=== PATIENT | female | born 1965 | race Hispanic/Latino ===

== ENCOUNTER 2021-05-08 23:41 | Emergency (ER) | payer MEDICARE ==
[~2021-05-08] VITALS: Ht 157.5 cm; Wt 77.1 kg
[2021-05-09 00:12] VITALS: BP 126/59
[2021-05-09] MEDS ORDERED: ONDANSETRON 4MG INJ IVP ONE ×2 (00:30)
[2021-05-09 00:32] LABS: CREATININE 0.8 mg/dL (0.5-1.5); POTASSIUM 3.5 mmol/L (3.5-5.1)
[2021-05-09 00:36] LABS: ALBUMIN 4.1 g/dL (3.5-5.0); BILIRUBIN,TOTAL 0.4 mg/dL (0.2-1.0); TOTAL PROTEIN, SERUM 7.8 g/dL (6.0-8.3)
[2021-05-09 00:50] LABS: HEMATOCRIT 39.2 % (36-48); MEAN CORPUSCULAR HEMOGLOBIN 30.2 pg (27.0-33.0); MEAN CORPUSCULAR HGB CONC 33.2 g/dL (32.0-36.0); RED BLOOD CELL COUNT(AUTO) 4.31 MIL/uL (4.00-5.50); RED CELL DISTRIBUTION WIDTH 13.2 % (11.0-15.5); WHITE BLOOD COUNT (AUTO) 5.1 K/uL (4.8-10.8)
[2021-05-09] MEDS ORDERED: PROCHLORPERAZINE EDISYLATE 5 MG/ML 2 ML VIAL IVP ONE (02:00)
[2021-05-09 02:56] VITALS: BP 123/54
[2021-05-09] MEDS ORDERED: PHEN12S PR (02:57)
[2021-05-09] MEDS ORDERED: ONDA4TAB10 PO (02:57)
== END 2021-05-09 03:07 | disposition home or self-care (01) ==
LOC: EDH 23:41
DX: K29.00 Acute gastritis without bleeding (principal); R11.2 Nausea with vomiting, unspecified; I10 Essential (primary) hypertension; F32.9 Major depressive disorder, single episode, unspecified; F41.9 Anxiety disorder, unspecified; M06.9 Rheumatoid arthritis, unspecified; Z88.6 Allergy status to analgesic agent; Z20.822 Contact with and (suspected) exposure to COVID-19
CPT/HCPCS: 36415; 71045; 80053; 83690; 84484; 85027; 87635; 87804 ×2; 93005; 96374; 96375; 99285; C9803; J2405

== ENCOUNTER → 2021-08-26 | Outpatient (CLI) | payer MEDICARE, OTHER ==
[~2021-08-26] MED LIST: ONDA4TAB10 PO; PHEN12S PR
== END | disposition home or self-care (01) ==
LOC: RAH 14:34
PROVIDERS: ATTEND Family Medicine
DX: M85.88 Other specified disorders of bone density and structure, other site (principal); M25.561 Pain in right knee
CPT/HCPCS: 73562

== ENCOUNTER → 2023-02-17 | Outpatient (CLI) | payer MEDICARE, MEDICAID | END | disposition home or self-care (01) | LOC: RAH 14:11 | PROVIDERS: ATTEND Family Medicine | DX: I08.8 Other rheumatic multiple valve diseases (principal); R01.1 Cardiac murmur, unspecified | CPT/HCPCS: 93306 ==

== ENCOUNTER → 2023-06-29 | Outpatient (CLI) | payer MEDICARE | END | disposition home or self-care (01) | LOC: RAH 08:29 | PROVIDERS: ATTEND Pediatrics | DX: K91.1 Postgastric surgery syndromes (principal); K21.9 Gastro-esophageal reflux disease without esophagitis; Z98.84 Bariatric surgery status | CPT/HCPCS: 74240 ==

== ENCOUNTER 2023-08-26 06:46 | Day surgery (SDC) | payer MEDICARE ==
[~2023-08-26] VITALS: Ht 157.5 cm; Wt 82.6 kg
[2023-08-26] VITALS (8 sets, daily range): BP systolic 101–122; BP diastolic 47–64; PULSE 45–51; RESP 14–16
[~2023-08-26 06:46] MED LIST changes: +BUSP10TA3 PO; +DOCU100C33 PO; +FAMO20TA8 PO; +LAMO150T6 PO; +LEVO150C4 PO; +OMEP40CA21 PO; -ONDA4TAB10 PO; -PHEN12S PR; +PREG150C47 PO; +SERT-440 PO; +SUVO20TA PO; +VITAFUSION PO
[2023-08-26] MEDS ORDERED: LIDOCAINE PF 100MG/5ML (2%) SYRINGE 5ML ONE (07:46)
[2023-08-26] MEDS ORDERED: PROPOFOL 10 MG/ML 20ML VIAL IV ONE (07:46)
[2023-08-26] MEDS ORDERED: 0.9%NACL 1000ML 1,000 ML IV ONE (09:41)
== END 2023-08-26 09:45 | disposition home or self-care (01) ==
LOC: ENDO 06:46 → DAH 06:46 → ENDO 09:45
PROVIDERS: ATTEND Surgery
DX: R13.10 Dysphagia, unspecified (principal); K91.1 Postgastric surgery syndromes; K29.50 Unspecified chronic gastritis without bleeding; R10.13 Epigastric pain; K21.9 Gastro-esophageal reflux disease without esophagitis; F41.9 Anxiety disorder, unspecified; F32.A Depression, unspecified; G47.00 Insomnia, unspecified; E03.9 Hypothyroidism, unspecified; M19.90 Unspecified osteoarthritis, unspecified site; E56.9 Vitamin deficiency, unspecified; Z98.890 Other specified postprocedural states; Z90.49 Acquired absence of other specified parts of digestive tract; Z98.891 History of uterine scar from previous surgery; Z98.84 Bariatric surgery status
CPT/HCPCS: 81025; 43239; J7030 ×2; J2001; J2704; A4620; A4215 ×2; A4223; A7002; A4222; A4221; A4663; A4216; A4606; J3490

== ENCOUNTER → 2023-09-06 | Outpatient (CLI) | payer MEDICARE | END | disposition home or self-care (01) | LOC: RAH 15:52 | PROVIDERS: ATTEND Physical Medicine & Rehabilitation | DX: M47.22 Other spondylosis with radiculopathy, cervical region (principal); M48.02 Spinal stenosis, cervical region; Z88.8 Allergy status to other drugs, medicaments and biological substances | CPT/HCPCS: 72050 ==

== ENCOUNTER → 2023-10-07 | Outpatient (CLI) | payer MEDICARE | END | disposition home or self-care (01) | LOC: RAH 10:03 | PROVIDERS: ATTEND Physical Medicine & Rehabilitation | DX: M48.02 Spinal stenosis, cervical region (principal); M50.322 Other cervical disc degeneration at C5-C6 level | CPT/HCPCS: 72141 ==

== ENCOUNTER 2024-01-27 05:40 | Day surgery (SDC) | payer MEDICARE ==
[2024-01-27] VITALS (13 sets, daily range): BP systolic 103–132; BP diastolic 49–79; PULSE 50–71; RESP 15–26
[~2024-01-27] VITALS: Ht 160 cm; Wt 87.1 kg
[~2024-01-27 05:40] MED LIST changes: -BUSP10TA3 PO; -DOCU100C33 PO; -LAMO150T6 PO; -SERT-440 PO; -SUVO20TA PO; +TOPI25TA48 PO; -VITAFUSION PO; +[UNRECOGNIZED DRUG - OTHER] PO
[2024-01-27] MEDS: 0.9%NACL 1000ML 1,000 ML IV ONE (07:03)
[2024-01-27] MEDS ORDERED: KETAMINE 50MG/ML SYRINGE 50 MG/ML DISP.SYRIN ONE (07:22)
[2024-01-27] MEDS ORDERED: PROPOFOL 10 MG/ML 20ML VIAL IV ONE (07:22)
[2024-01-27] MEDS ORDERED: MIDAZOLAM HCL 1 MG/ML 2ML VIAL ONE (07:22)
[2024-01-27] MEDS ORDERED: LIDOCAINE PF 100MG/5ML (2%) SYRINGE 5ML ONE (07:22)
[2024-01-27] MEDS ORDERED: GLYCOPYRROLATE 0.2 MG/ML 5 ML VIAL ONE (07:27)
== END 2024-01-27 09:40 | disposition home or self-care (01) ==
LOC: ENDO 05:40 → DAH 05:40 → ENDO 09:40
PROVIDERS: ATTEND Surgery
DX: K91.1 Postgastric surgery syndromes (principal); K30 Functional dyspepsia; K22.89 Other specified disease of esophagus; K31.89 Other diseases of stomach and duodenum; F41.9 Anxiety disorder, unspecified; F32.A Depression, unspecified; E03.9 Hypothyroidism, unspecified; K21.00 Gastro-esophageal reflux disease with esophagitis, without bleeding; M19.90 Unspecified osteoarthritis, unspecified site; E66.01 Morbid (severe) obesity due to excess calories; Z68.24 Body mass index [BMI] 24.0-24.9, adult; Z88.6 Allergy status to analgesic agent; Z82.49 Family history of ischemic heart disease and other diseases of the circulatory system; Z83.3 Family history of diabetes mellitus; Z82.5 Family history of asthma and other chronic lower respiratory diseases; Z80.9 Family history of malignant neoplasm, unspecified; Z79.890 Hormone replacement therapy; Z79.899 Other long term (current) drug therapy; Z98.84 Bariatric surgery status; Z98.891 History of uterine scar from previous surgery; Z98.890 Other specified postprocedural states
CPT/HCPCS: 43270; J7030 ×2; J2001; J2250; J2704; J3490 ×2; A4620; A4215 ×2; A4223; A7002; A4222; A4221; A4663; A4606

== ENCOUNTER 2024-03-16 05:43 | Day surgery (SDC) | payer MEDICARE ==
[2024-03-16] VITALS (10 sets, daily range): BP systolic 103–144; BP diastolic 59–81; PULSE 51–62; RESP 16
[~2024-03-16] VITALS: Ht 160 cm; Wt 86.2 kg
[2024-03-16] MEDS: 0.9%NACL 1000ML 1,000 ML IV ONE (06:43)
[2024-03-16] MEDS ORDERED: PROPOFOL 10 MG/ML 20ML VIAL IV ONE (07:23)
[2024-03-16] MEDS ORDERED: LIDOCAINE PF 100MG/5ML (2%) SYRINGE 5ML ONE (07:24)
== END 2024-03-16 09:40 | disposition home or self-care (01) ==
LOC: DAH 05:43 → ENDO 05:43 → EDSTATUS 11:00
PROVIDERS: ATTEND Surgery
DX: R13.10 Dysphagia, unspecified (principal); K22.89 Other specified disease of esophagus; K31.89 Other diseases of stomach and duodenum; K21.00 Gastro-esophageal reflux disease with esophagitis, without bleeding; K91.1 Postgastric surgery syndromes; F41.9 Anxiety disorder, unspecified; F32.A Depression, unspecified; M19.90 Unspecified osteoarthritis, unspecified site; E03.9 Hypothyroidism, unspecified; E66.01 Morbid (severe) obesity due to excess calories; Z68.33 Body mass index [BMI] 33.0-33.9, adult; Z88.6 Allergy status to analgesic agent; Z82.5 Family history of asthma and other chronic lower respiratory diseases; Z83.3 Family history of diabetes mellitus; Z80.9 Family history of malignant neoplasm, unspecified; Z82.49 Family history of ischemic heart disease and other diseases of the circulatory system; Z79.890 Hormone replacement therapy; Z98.84 Bariatric surgery status
CPT/HCPCS: 84703; 36415; 43270; J7030; J2001; J2704; J3490

== ENCOUNTER 2024-04-21 06:16 | Day surgery (SDC) | payer MEDICARE ==
[2024-04-20 12:49] LABS: BASOPHILS # (AUTO) 0.04 K/uL (0.00-0.20); EOSINOPHILS # (AUTO) 0.08 K/uL (0.00-0.70); HEMATOCRIT 37.5 % (36-48); IMMATURE GRANULOCYTE ABSOLUTE 0.01 K/uL (0-1); LYMPHOCYTES # (AUTO) 1.3 K/uL (1.0-4.8); LYMPHOCYTES % (AUTO) 31.9 % (21.0-51.0); MEAN CORPUSCULAR HEMOGLOBIN 28.3 pg (27.0-33.0); MEAN CORPUSCULAR HGB CONC 32.3 g/dL (32.0-36.0); MEAN CORPUSCULAR VOLUME 87.6 fL (79-99); MONOCYTES # (AUTO) 0.5 K/uL (0.1-1.0); MONOCYTES % (AUTO) 12.2 % (3.0-13.0); NEUTROPHILS # (AUTO) 2.1 K/uL (1.8-7.7); NEUTROPHILS % (AUTO) 52.6 % (40.0-77.0); PLATELET COUNT (AUTO) 298 K/uL (130-400); RED BLOOD CELL COUNT(AUTO) 4.28 MIL/uL (4.00-5.50); RED CELL DISTRIBUTION WIDTH 14.8 % (11.0-15.5); WHITE BLOOD COUNT (AUTO) 3.9 K/uL (4.8-10.8)
[2024-04-20 12:59] LABS: CREATININE 0.8 mg/dL (0.5-1.0)
[2024-04-20 13:27] VITALS: BP 119/68; PULSE 85; RESP 18
[~2024-04-21] VITALS: Ht 157.5 cm; Wt 82.7 kg
[2024-04-21] VITALS (16 sets, daily range): BP systolic 105–133; BP diastolic 50–76; PULSE 60–69; RESP 14–18
[2024-04-21] MEDS: LACTATED RINGERS 1000ML 1,000 ML IV ONE
[~2024-04-21 06:16] MED LIST changes: +ARIP15TA66 PO; +FLUO40CA7 PO; +LAMO150T6 PO; +LORA-192 PO; +PHEN37.596 PO; -TOPI25TA48 PO; +ZALE10CA26 PO; -[UNRECOGNIZED DRUG - OTHER] PO
[2024-04-21] MEDS ORDERED: MIDAZOLAM HCL 1 MG/ML 2ML VIAL ONE (08:18)
[2024-04-21] MEDS ORDERED: LIDOCAINE PF 100MG/5ML (2%) SYRINGE 5ML ONE (08:19)
[2024-04-21] MEDS ORDERED: FENTANYL CITRATE PF 50 MCG/1 ML 2ML VIAL ONE (08:19)
[2024-04-21] MEDS ORDERED: PROPOFOL 10 MG/ML 20ML VIAL IV ONE (08:19)
[2024-04-21] MEDS ORDERED: SUCCINYLCHOLINE CHLORIDE 20 MG/ML 10 ML VIAL ONE (08:19)
[2024-04-21] MEDS: LEVOFLOXACIN 500 MG/D5W 100 ML 100 ML ONE (08:25)
[2024-04-21] MEDS ORDERED: ROCURONIUM BROMIDE 10MG/1ML 5ML VL ONE (08:37)
[2024-04-21] MEDS ORDERED: PHENYLEPHRINE HCL 10 MG/ML 1ML VIAL IV ONE (08:52)
[2024-04-21] MEDS ORDERED: ONDANSETRON 4MG INJ ONE (09:40)
[2024-04-21] MEDS ORDERED: KETOROLAC 30MG VIAL (30MG/ML) ONE (09:56)
[2024-04-21] MEDS: PHENAZOPYRIDINE HCL 200 MG TABLET PO ONE (11:40)
== END 2024-04-21 11:10 | disposition home or self-care (01) ==
LOC: DAH 06:16
PROVIDERS: ATTEND Urology
DX: N20.0 Calculus of kidney (principal); I10 Essential (primary) hypertension; E78.00 Pure hypercholesterolemia, unspecified; M79.7 Fibromyalgia; M06.9 Rheumatoid arthritis, unspecified; K21.9 Gastro-esophageal reflux disease without esophagitis; F41.9 Anxiety disorder, unspecified; Z46.6 Encounter for fitting and adjustment of urinary device; Z82.49 Family history of ischemic heart disease and other diseases of the circulatory system; Z83.3 Family history of diabetes mellitus; Z88.6 Allergy status to analgesic agent; Z82.5 Family history of asthma and other chronic lower respiratory diseases; Z80.9 Family history of malignant neoplasm, unspecified; Z79.899 Other long term (current) drug therapy; Z90.49 Acquired absence of other specified parts of digestive tract; Z98.84 Bariatric surgery status; Z98.890 Other specified postprocedural states
CPT/HCPCS: 80048; 85025; 36415; 50590; 52310; 81025; A6260; A4663; J7120 ×2; J3010; J1956; J0330; J3490; J2001; J2250; J2704; J2405; J1885; J2371; A4358; A4215; A4223; A4222; A4221; A4600; A4510